=== PATIENT | female | born 1950 | race Asian ===

== ENCOUNTER 2022-04-19 21:30 | Inpatient (IN) | payer OTHER, MEDICARE ==
[~2022-04-19] VITALS: Ht 152.4 cm; Wt 55.3 kg
[2022-04-19 21:39] VITALS: BP_SYST 178
[2022-04-19 22:28] LABS: BASOPHILS % (AUTO) 0.1 % (0.0-2.0); HEMATOCRIT 39.2 % (36-48); HEMOGLOBIN 13.4 g/dL (12.0-16.0); LYMPHOCYTES # (AUTO) 0.7 K/uL (1.0-5.5); LYMPHOCYTES % (AUTO) 6.6 % (20.5-51.5); MEAN CORPUSCULAR HEMOGLOBIN 32 pg (27-31); MEAN CORPUSCULAR HGB CONC 34 % (32-36); MEAN CORPUSCULAR VOLUME 95 fL (79.0-98.0); MONOCYTES # (AUTO) 0.1 K/uL (0.0-1.0); MONOCYTES % (AUTO) 1.4 % (1.7-9.3); NEUTROPHILS # (AUTO) 9.1 K/uL (1.8-7.7); NEUTROPHILS % (AUTO) 91.9 % (40.0-70.0); PLATELET COUNT (AUTO) 294 K/uL (130-430); RED BLOOD CELL COUNT(AUTO) 4.14 MIL/uL (4.2-6.2); RED CELL DISTRIBUTION WIDTH 12.7 % (9.0-15.0)
[2022-04-19] MEDS ORDERED: MAG HYDROX/AL HYDROX/SIMETH 30 ML, LIDOCAINE VISCOUS 2% 15ML (PO) 15 ML, DICYCLOMINE HC... PO ONE ×3 (22:45)
[2022-04-19] MEDS ORDERED: OMEP40CA20 PO (23:02)
[2022-04-19] MEDS ORDERED: ONDA-8 TL (23:02)
[2022-04-19] MEDS ORDERED: ANT30 PO (23:02)
[2022-04-19 23:11] LABS: CALCIUM 8.2 mg/dL (8.4-11.0); CREATININE 0.58 mg/dL (0.55-1.30); POTASSIUM 4.1 mmol/L (3.5-5.1)
[2022-04-19 23:19] LABS: ALBUMIN 3.7 g/dL (3.4-4.8); TOTAL BILIRUBIN 0.5 mg/dL (0.0-1.0)
[2022-04-19 23:51] LABS: BILIRUBIN,URINE NEGATIVE (NEGATIVE); BLOOD, URINE NEGATIVE (NEGATIVE); CLARITY/URINE CLEAR (CLEAR); COLOR,URINE YELLOW (YELLOW); GLUCOSE,URINE 2+ (NEGATIVE); KETONES,URINE 2+ (NEGATIVE); LEUKOCYTE ESTERASE ,URINE 1+ (NEGATIVE); NITRITE, URINE NEGATIVE (NEGATIVE); PROTEIN URINE TRACE (NEGATIVE)
[2022-04-20 00:04] LABS: BACTERIA,URINE FEW /HPF (None Seen); RBC,URINE 0-3 /HPF (0-3)
[2022-04-20] MEDS ORDERED: ACETAMINOPHEN WITH CODEINE 12.5 ML UDC PO ONE (00:30)
[2022-04-20] MEDS ORDERED: ONDANSETRON HCL 4 MG/2 ML VIAL IVP PRN (05:00)
[2022-04-20] MEDS ORDERED: MORPHINE 4 MG INJ. 4 MG/ML VIAL IVP PRN (05:00)
[2022-04-20 07:03] VITALS: BP_SYST 144
[2022-04-20 11:02] VITALS: BP_SYST 153
[2022-04-20] MEDS: cefTRIAXone 1 GM in D5W 50 ML IV SCH (11:35)
[2022-04-20 12:24] VITALS: BP_SYST 146
[2022-04-20 16:44] VITALS: BP_SYST 115
[2022-04-20] MEDS ORDERED: INSULIN ASPART 100 UNITS/ML, 10 ML VIAL (NovoLOG) SUBCUT PRN (21:15)
[2022-04-21 00:13] VITALS: BP_SYST 150
[2022-04-21] MEDS: cefTRIAXone 1 GM in D5W 50 ML IV SCH (09:41)
[2022-04-21 12:51] VITALS: BP_SYST 141
[2022-04-21 16:00] VITALS: BP_SYST 122
[2022-04-21 16:16] VITALS: BP_SYST 145
[2022-04-21 20:00] VITALS: BP_SYST 151
[2022-04-21] MEDS: ACETAMINOPHEN 500 MG TABLET PO PRN (21:09)
[2022-04-21] MEDS ORDERED: PIPERACILLIN/TAZO 4.5GM/DEX-IS 100 ML IV SCH (23:00)
[2022-04-21] MEDS ORDERED: PIPERACILLIN/TAZOBACTAM 4.5 GM/VIAL (ZOSYN) IV ONE (23:20)
[2022-04-22] VITALS (7 sets, daily range): BP systolic 137–151
[2022-04-22] MEDS: ACETAMINOPHEN 500 MG TABLET PO PRN ×3 (02:56→11:03)
[2022-04-22] MEDS: PIPERACILLIN/TAZO 4.5GM/DEX-IS 100 ML IV SCH ×3 (06:00→22:56)
[2022-04-22 07:04] LABS: BASOPHILS % (AUTO) 0.2 % (0.0-2.0); EOSINOPHILS % (AUTO) 0.1 % (0.0-4.0); HEMATOCRIT 37.1 % (36-48); HEMOGLOBIN 12.7 g/dL (12.0-16.0); LYMPHOCYTES # (AUTO) 0.8 K/uL (1.0-5.5); LYMPHOCYTES % (AUTO) 5.8 % (20.5-51.5); MEAN CORPUSCULAR HEMOGLOBIN 32 pg (27-31); MEAN CORPUSCULAR HGB CONC 34 % (32-36); MEAN CORPUSCULAR VOLUME 94 fL (79.0-98.0); MONOCYTES # (AUTO) 0.5 K/uL (0.0-1.0); MONOCYTES % (AUTO) 3.9 % (1.7-9.3); NEUTROPHILS # (AUTO) 12.3 K/uL (1.8-7.7); PLATELET COUNT (AUTO) 227 K/uL (130-430); RED BLOOD CELL COUNT(AUTO) 3.96 MIL/uL (4.2-6.2); WHITE BLOOD COUNT (AUTO) 13.7 K/uL (4.8-10.8)
[2022-04-22 08:29] LABS: ALBUMIN 2.9 g/dL (3.4-4.8); CALCIUM 8.4 mg/dL (8.4-11.0); CREATININE 0.65 mg/dL (0.55-1.30); TOTAL BILIRUBIN 1.6 mg/dL (0.0-1.0)
[2022-04-22 09:42] LABS: POTASSIUM 2.7 mmol/L (3.5-5.1)
[2022-04-22] MEDS ORDERED: KCL 20 mEq in 100 mL (PREMIX) 100 ML IV ONE (11:00)
[2022-04-22] MEDS: LR 1,000 ML IV SCH ×2 (12:36→23:30)
[2022-04-22] MEDS ORDERED: MIDAZOLAM HCL 5 MG/5 ML VIAL ONE (16:20)
[2022-04-22] MEDS ORDERED: PROPOFOL 200MG/ 20ML VIAL (DIPRIVAN) IV ONE (16:20)
[2022-04-22] MEDS ORDERED: NS IRRIG SOLN 1000 ML IR ONE (16:20)
[2022-04-22] MEDS ORDERED: fentaNYL CITRATE 250 MCG/5 ML AMP ONE (16:20)
[2022-04-22] MEDS ORDERED: ROCURONIUM BROMIDE 10 MG/ML (ZEMURON) ONE (16:20)
[2022-04-22] MEDS ORDERED: NS 1000 ML IV.SOLN IV ONE (16:20)
[2022-04-22] MEDS ORDERED: SEVOFLURANE 15 MIN GAS INH ONE (16:20)
[2022-04-22] MEDS ORDERED: iohexoL 240 mgI/mL, 50 ML INFUS..BTL IV ONE (16:26)
[2022-04-22] MEDS ORDERED: METOCLOPRAMIDE HCL 10 MG/2 ML VIAL IVP PRN (17:00)
[2022-04-22] MEDS ORDERED: ONDANSETRON HCL 4 MG/2 ML VIAL IVP PRN (17:00)
[2022-04-22] MEDS ORDERED: fentaNYL CITRATE/PF 100 MCG/2 ML AMP IVP PRN ×2 (17:00)
[2022-04-22] MEDS ORDERED: fentaNYL CITRATE/PF 100 MCG/2 ML AMP ONE (19:19)
[2022-04-23] VITALS (7 sets, daily range): BP systolic 122–150
[2022-04-23 06:35] LABS: BASOPHILS % (AUTO) 0.2 % (0.0-2.0); HEMATOCRIT 35.5 % (36-48); HEMOGLOBIN 11.9 g/dL (12.0-16.0); LYMPHOCYTES % (AUTO) 10.7 % (20.5-51.5); MEAN CORPUSCULAR HEMOGLOBIN 31 pg (27-31); MEAN CORPUSCULAR HGB CONC 34 % (32-36); MEAN CORPUSCULAR VOLUME 93 fL (79.0-98.0); MONOCYTES # (AUTO) 0.7 K/uL (0.0-1.0); MONOCYTES % (AUTO) 7.5 % (1.7-9.3); NEUTROPHILS # (AUTO) 7.4 K/uL (1.8-7.7); NEUTROPHILS % (AUTO) 81.6 % (40.0-70.0); PLATELET COUNT (AUTO) 240 K/uL (130-430); RED CELL DISTRIBUTION WIDTH 12.8 % (9.0-15.0)
[2022-04-23] MEDS: PIPERACILLIN/TAZO 4.5GM/DEX-IS 100 ML IV SCH ×3 (06:50→23:02)
[2022-04-23 07:02] LABS: ALBUMIN 2.3 g/dL (3.4-4.8); BILIRUBIN,DIRECT 0.4 mg/dL (0.0-0.3); CALCIUM 7.7 mg/dL (8.4-11.0); CREATININE 0.52 mg/dL (0.55-1.30)
[2022-04-23 07:49] LABS: TOTAL BILIRUBIN 0.8 mg/dL (0.0-1.0)
[2022-04-23] MEDS ORDERED: POTASSIUM CHLORIDE 20 MEQ TAB.PRT.SR PO ONE (10:00)
[2022-04-23] MEDS: ACETAMINOPHEN 500 MG TABLET PO PRN ×2 (12:20→20:07)
[2022-04-23] MEDS: LR 1,000 ML IV SCH (14:14)
[2022-04-24] VITALS (7 sets, daily range): BP systolic 110–142
[2022-04-24] MEDS: LR 1,000 ML IV SCH ×2 (02:00→19:45)
[2022-04-24] MEDS: ACETAMINOPHEN 500 MG TABLET PO PRN ×2 (06:11→18:06)
[2022-04-24] MEDS: PIPERACILLIN/TAZO 4.5GM/DEX-IS 100 ML IV SCH ×3 (06:38→22:51)
[2022-04-24 10:59] LABS: BASOPHILS % (AUTO) 0.3 % (0.0-2.0); EOSINOPHILS % (AUTO) 0.4 % (0.0-4.0); HEMATOCRIT 33.9 % (36-48); HEMOGLOBIN 11.6 g/dL (12.0-16.0); LYMPHOCYTES # (AUTO) 1.4 K/uL (1.0-5.5); LYMPHOCYTES % (AUTO) 14.8 % (20.5-51.5); MEAN CORPUSCULAR HEMOGLOBIN 32 pg (27-31); MEAN CORPUSCULAR HGB CONC 34 % (32-36); MEAN CORPUSCULAR VOLUME 94 fL (79.0-98.0); MONOCYTES % (AUTO) 9.9 % (1.7-9.3); NEUTROPHILS # (AUTO) 7.2 K/uL (1.8-7.7); NEUTROPHILS % (AUTO) 74.6 % (40.0-70.0); PLATELET COUNT (AUTO) 272 K/uL (130-430); RED BLOOD CELL COUNT(AUTO) 3.62 MIL/uL (4.2-6.2); RED CELL DISTRIBUTION WIDTH 12.8 % (9.0-15.0); WHITE BLOOD COUNT (AUTO) 9.6 K/uL (4.8-10.8)
[2022-04-24 11:40] LABS: ALBUMIN 1.5 g/dL (3.4-4.8); CALCIUM 7.9 mg/dL (8.4-11.0); CREATININE 0.72 mg/dL (0.55-1.30); POTASSIUM 3.5 mmol/L (3.5-5.1); TOTAL BILIRUBIN 0.8 mg/dL (0.0-1.0)
[2022-04-25] VITALS (7 sets, daily range): BP systolic 137–144
[2022-04-25] MEDS: ACETAMINOPHEN 500 MG TABLET PO PRN (04:30)
[2022-04-25] MEDS: PIPERACILLIN/TAZO 4.5GM/DEX-IS 100 ML IV SCH (06:07)
== END 2022-04-25 12:30 | disposition home health service (06) | DRG 854 ==
LOC: SED 21:30 → SMU 04-20 04:58 → STU 04-21 23:07
PROVIDERS: ADMIT Family Medicine; ATTEND Family Medicine
PROC: 0FT44ZZ Resection of Gallbladder, Percutaneous Endoscopic Approach (ICD-10-PCS; principal; 2022-04-25)
PROC: 0DNU4ZZ Release Omentum, Percutaneous Endoscopic Approach (ICD-10-PCS; 2022-04-25)
PROC: 0FN04ZZ Release Liver, Percutaneous Endoscopic Approach (ICD-10-PCS; 2022-04-25)
PROC: BF121ZZ Fluoroscopy of Gallbladder using Low Osmolar Contrast (ICD-10-PCS; 2022-04-25)
DX: A41.9 Sepsis, unspecified organism (principal); K80.01 Calculus of gallbladder with acute cholecystitis with obstruction; N39.0 Urinary tract infection, site not specified; K82.1 Hydrops of gallbladder; I10 Essential (primary) hypertension; E11.9 Type 2 diabetes mellitus without complications; E78.00 Pure hypercholesterolemia, unspecified; Z20.822 Contact with and (suspected) exposure to COVID-19; E78.5 Hyperlipidemia, unspecified; K42.9 Umbilical hernia without obstruction or gangrene; K66.0 Peritoneal adhesions (postprocedural) (postinfection); K82.A1 Gangrene of gallbladder in cholecystitis; E87.6 Hypokalemia; Z79.899 Other long term (current) drug therapy; Z90.49 Acquired absence of other specified parts of digestive tract
CPT/HCPCS: 36415; 74181; 76000; 76376; 76700-TC; 76705; 78226; 80053; 80076; 81000; 82962; 83690; 84132; 85025; 87040; 87086; 88304; 93005; 94760; 97116-GP; 97530-GP; 99285; A9537; C1727; G0378; J0696; J1815; J2001; J2250; J2270; J2405; J2543; J2704; J3010; J3480; J7030; J7060; Q9966